=== PATIENT | female | born 1975 | race Caucasian/White ===

== ENCOUNTER 2017-11-28 19:31 | Emergency (ER) | payer BC ==
[2017-11-28] MEDS ORDERED: HYDROCODONE/APAP 7.5/325MG TABLET PO ONE (20:38)
[2017-11-28] MEDS ORDERED: ONDANSETRON 4 MG ODT TABLET SL ONE (20:38)
--- NOTE | 2017-11-28 20:44 | Emergency Department Record ---
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 Patient reports that she was able to walk following her fall injury, denies injury to the head. Patient reports mild pain to the left paraspinal region, neck, and left hip and more sever pain to the left hand/wrist. Patient does not take blood thinner medications, but does report a history of RA (takes immunosuppresant medication) . 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 Place Fall Occurred: Home Loss of Consciousness: None Prolonged Down Time?: No Symptoms Prior to Fall: None Location: Neck, Back Location - Extremities: Left: Hand, Thigh Severity: Moderate Severity scale (1-10): 9 Quality: Aching - [place] Coma Scale Eye Response: (4) Open spontaneously Motor Response: (6) Obeys commands Verbal Response: (5) Oriented Shaila Total: 15 - Related Data Home Medications Medication Instructions Recorded Confirmed Last Taken Meloxicam 15 mg PO DAILY 11/28/17 11/28/17 1 Day Ago ~11/27/17 Venlafaxine HCl [Effexor Xr] 300 mg PO DAILY 11/28/17 11/28/17 1 Day Ago ~11/27/17 Previous Rx's Medication Instructions Recorded Ibuprofen [Motrin] 800 mg PO Q6H PRN #30 tab 11/28/17 Allergies Allergy/AdvReac Type Severity Reaction Status Date / Time No Known Drug Allergies Allergy Verified 11/28/17 20:34 Travel Screening - Travel/Exposure Within Last 30 Days Have you traveled within the last 30 days?: No - Travel/Exposure Within Last Year Have you traveled outside the [place] in the last year?: No - Additonal Travel Details Have you been exposed to anyone with a communicable illness?: No - Travel Symptoms Symptom Screening: None Review of Systems Constitutional: Denies: Chills, Fever, Malaise, Night sweats Eyes: Denies: Eye discharge, Eye pain ENT: Denies: Congestion, Ear pain, Epistaxis Respiratory: Denies: Cough, Dyspnea Cardiovascular: Denies: Chest pain, Dyspnea on exertion Endocrine: Denies: Fatigue, Heat or cold intolerance Gastrointestinal: Denies: Abdominal pain, Nausea, Vomiting Genitourinary: Denies: Incontinence, Retention Musculoskeletal: Reports: Arthralgia, Back pain, Neck pain. Denies: Gout, Joint swelling Skin: Reports: Bruising (left hand). Denies: Change in color, Change in hair/ nails Neurological: Denies: Abnormal gait, Confusion, Headache, Seizure Psychiatric: Denies: Anxiety Hematological/Lymphatic: Denies: Anemia, Blood Clots Past Medical History - SOCIAL HISTORY Smoking Status: Never smoker Alcohol Use: Occasional Drug Use: None - RESPIRATORY Hx Respiratory Disorders: No - CARDIOVASCULAR Hx Cardio Disorders: Yes Hx Hypertension: Yes - NEURO Hx Neuro Disorders: Yes Hx Headaches: Yes - GI Hx GI Disorders: Yes Hx Diverticulitis: Yes - Hx Genitourinary Disorders: No - ENDOCRINE Hx Endocrine Disorders: No - MUSCULOSKELETAL Hx Musculoskeletal Disorders: No - PSYCH Hx Psych Problems: Yes Hx Anxiety: Yes - HEMATOLOGY/ONCOLOGY Hx Hematology/Oncology Disorders: No Family Medical History Any Significant Family History?: Yes Physical Exam - General General Appearance: Alert, Oriented x3, Cooperative, Moderate distress Limitations: No limitations - Head Head exam: Atraumatic, Normocephalic, Normal inspection Head exam detail: negative: Abrasion, Contusion, Singh's sign, General tenderness, Hematoma, Laceration - Eye Eye exam: Normal appearance. negative: Conjunctival injection, Periorbital swelling, Periorbital tenderness, Scleral icterus - ENT Ear exam: negative: Auricular hematoma, Auricular trauma Nasal Exam: negative: Active bleeding, Discharge, Dried blood, Foreign body Mouth exam: negative: Drooling, Laceration, Muffled voice, Tongue elevation - Neck Neck exam: Normal inspection. negative: Meningismus, Tenderness - Respiratory Respiratory exam: Normal lung sounds bilaterally. negative: Rales, Respiratory distress, Rhonchi, Stridor - Cardiovascular Cardiovascular Exam: Regular rate, Normal rhythm, Normal heart sounds Peripheral Pulses: 3+: Radial (L) - GI/Abdominal GI/Abdominal exam: Soft. negative: Rebound, Rigid, Tenderness - Rectal Rectal exam: Deferred - exam: Deferred - Extremities Extremities exam: Tenderness (TTP and ecchymosis over the thenar region of the left hand, TTP and mild STS to the left proximal thigh c/w hematoma.). negative : Calf tenderness, Pedal edema - Back Back exam: Reports: Paraspinal tenderness (left lumbar region). Denies: CVA tenderness (R), CVA tenderness (L) - Neurological Neurological exam: Alert, Normal gait, Oriented X3 - Psychiatric Psychiatric exam: Normal affect, Normal mood - Skin Skin exam: Normal color. 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 Patient was instructed to follow-up with her PCP in 3-5 days as directed as well. Disposition Disposition: Discharge Clinical Impression: Multiple contusions Fall Qualifiers: Encounter type: initial encounter Qualified Code(s): W19.XXXA - Unspecified fall, initial encounter Disposition: Home, Self-Care Condition: (2) Stable Instructions: Contusion in Adults (ED) Additional Instructions: Return to ED if your symptoms worsen or if you have any concerns. Motrin 800 mg as directed. Follow-up with your family doctor in 3-5 days as directed. Prescriptions: Ibuprofen [Motrin] 800 mg PO Q6H PRN #30 tab PRN Reason: Pain - Moderate (5-7) Forms: Patient Portal Access Time of Disposition: 22:24 Quality - Quality Measures Quality Measures: N/A - Blood Pressure Screening Does Patient Have Any of the Following: No Blood Pressure Classification: Hypertensive Reading Systolic Measurement: 194 Diastolic Measurement: 123 Screening for High Blood Pressure: < First Hypertensive BP, F/U Documented > [ G8950] First Hypertensive Follow-up Interventions: Referral to alternative/primary care provider.
== END 2017-11-28 22:40 | disposition home or self-care (01) ==
LOC: ER 19:31
DX: S70.12XA Contusion of left thigh, initial encounter (principal); S30.0XXA Contusion of lower back and pelvis, initial encounter; S60.212A Contusion of left wrist, initial encounter; S70.02XA Contusion of left hip, initial encounter; M06.9 Rheumatoid arthritis, unspecified; W01.198A Fall on same level from slipping, tripping and stumbling with subsequent striking against other object, initial encounter; Y93.H2 Activity, gardening and landscaping; Y92.007 Garden or yard of unspecified non-institutional (private) residence as the place of occurrence of the external cause; I10 Essential (primary) hypertension
CPT/HCPCS: 72100; 72125; 99283; 99284

== ENCOUNTER 2018-02-10 10:37 | Emergency (ER) | payer BC ==
[2018-02-10] MEDS ORDERED: ONDANSETRON HCL IV 4 MG/2 ML VIAL IVP ONE (11:28)
[2018-02-10] MEDS ORDERED: HYDROMORPHONE HCL 2 MG/ML VIAL IVP ONE ×2 (11:28→12:17)
[2018-02-10 11:46] LABS: BASO % 0.4 % (0-6); EOS % 2.7 % (0-6); HEMATOCRIT 40.6 % (35.0-47.0); HEMOGLOBIN 12.7 gm/dl (11.6-16.0); LYMPH % 11.1 % (16-45); MEAN CELL VOLUME 88.3 fl (81-97); MEAN CORPUSCULAR HEMOGLOBIN 27.6 pg (27-33); MEAN CORPUSCULAR HGB CONC 31.3 g/dl (32-36); MONO % 8.8 % (0-9); PLATELET COUNT 290 K/uL (130-400); RED CELL DISTRIBUTION WIDTH 13.2 % (11.5-14.5); WHITE BLOOD COUNT W/O DIFF 7.5 K/uL (4.2-12.2)
--- NOTE | 2018-02-10 11:53 | Emergency Department Record ---
History of Present Illness - General Chief Complaint: Fall Injury Stated Complaint: FALL CHEST /BACK/PAIN Time Seen by Provider: 02/10/18 11:01 Source: Patient Mode of Arrival: Ambulatory Limitations: No limitations - History of Present Illness Initial Comments: pt fell onto a metal chair last night. it hit her in the diaphragm epigastric area. it knocked the wind out of her. the pain has increased and it now hurts in her back Complaint: Fall Onset/Timin -: Hour(s) Fall From: Standing When Fall Occurred: Other Fall Witnessed: Yes, by family Place Fall Occurred: Home Loss of Consciousness: None Prolonged Down Time?: No Symptoms Prior to Fall: None Location: Chest, Abdomen Severity scale (1-10): 9 Quality: Stabbing Associated Symptoms: Denies - [place] Coma Scale Eye Response: (4) Open spontaneously Motor Response: (6) Obeys commands Verbal Response: (5) Oriented Shaila Total: 15 - Related Data Previous Rx's Medication Instructions Recorded Ibuprofen [Motrin] 800 mg PO Q6H PRN #30 tab 11/28/17 Hydrocodone/Acetaminophen [[place] 1 each PO Q6HR #10 tablet 02/10/18 5-325 Tablet] Allergies Allergy/AdvReac Type Severity Reaction Status Date / Time No Known Drug Allergies Allergy Verified 11/28/17 20:34 Travel Screening - Travel/Exposure Within Last 30 Days Have you traveled within the last 30 days?: No - Travel/Exposure Within Last Year Have you traveled outside the [place] in the last year?: No - Additonal Travel Details Have you been exposed to anyone with a communicable illness?: No - Travel Symptoms Symptom Screening: None Review of Systems Reviewed: No additional complaints except as noted below Constitutional: Reports: As per HPI. Denies: Chills, Fever, Malaise, Night sweats, Weakness, Weight change Eyes: Reports: As per HPI. Denies: Eye discharge, Eye pain, Photophobia, Vision change ENT: Reports: As per HPI. Denies: Congestion, Dental pain, Ear pain, Epistaxis , Hearing loss, Throat pain Respiratory: Reports: As per HPI. Denies: Cough, Dyspnea, Hemoptysis, Stridor, Wheezes Cardiovascular: Reports: As per HPI. Denies: Arrhythmia, Chest pain, Dyspnea on exertion, Edema, Murmurs, Orthopnea, Palpitations, Paroxysmal nocturnal dyspnea, Rheumatic Fever, Syncope Endocrine: Reports: As per HPI. Denies: Fatigue, Heat or cold intolerance, Polydipsia, Polyuria Gastrointestinal: Reports: As per HPI, Abdominal pain. Denies: Constipation, Diarrhea, Hematemesis, Hematochezia, Melena, Nausea, Vomiting Genitourinary: Reports: As per HPI. Denies: Abnormal menses, Discharge, Dyspareunia, Dysuria, Frequency, Hematuria, Incontinence, Retention, Urgency Musculoskeletal: Reports: As per HPI. Denies: Arthralgia, Back pain, Gout, Joint swelling, Myalgia, Neck pain Skin: Reports: As per HPI. Denies: Bruising, Change in color, Change in hair/ nails, Lesions, Pruritus, Rash Neurological: Reports: As per HPI. Denies: Abnormal gait, Confusion, Headache, Numbness, Paresthesias, Seizure, Tingling, Tremors, Vertigo, Weakness Psychiatric: Reports: As per HPI. Denies: Anxiety, Auditory hallucinations, Depression, Homicidal thoughts, Suicidal thoughts, Visual hallucinations Hematological/Lymphatic: Reports: As per HPI. Denies: Anemia, Blood Clots, Easy bleeding, Easy bruising, Swollen glands Past Medical History - SOCIAL HISTORY Smoking Status: Current every day smoker Alcohol Use: Rare Drug Use: None - RESPIRATORY Hx Respiratory Disorders: No - CARDIOVASCULAR Hx Cardio Disorders: Yes Hx Hypertension: Yes - NEURO Hx Neuro Disorders: Yes Hx Headaches: Yes - GI Hx GI Disorders: Yes Hx Diverticulitis: Yes - Hx Genitourinary Disorders: No - ENDOCRINE Hx Endocrine Disorders: No - MUSCULOSKELETAL Hx Musculoskeletal Disorders: No - PSYCH Hx Psych Problems: Yes Hx Anxiety: Yes - HEMATOLOGY/ONCOLOGY Hx Hematology/Oncology Disorders: No Family Medical History Any Significant Family History?: No Physical Exam - General General Appearance: Alert, Oriented x3, Cooperative, Moderate distress - Head Head exam: Normal inspection - Eye Eye exam: Normal appearance, PERRL, EOMI Pupils: Normal accommodation - ENT ENT exam: Normal exam, Mucous membranes moist, Normal external ear exam, Normal orophraynx Ear exam: Normal external inspection. negative: External canal tenderness Nasal Exam: Normal inspection. negative: Discharge, Sinus tenderness Mouth exam: Normal external inspection, Tongue normal Teeth exam: Normal inspection. negative: Dental caries Throat exam: Normal inspection. negative: Tonsillar erythema, Tonsillar exudate - Neck Neck exam: Normal inspection, Full ROM. negative: Tenderness - Respiratory Respiratory exam: Normal lung sounds bilaterally. negative: Respiratory distress - Cardiovascular Cardiovascular Exam: Regular rate, Normal rhythm, Normal heart sounds - GI/Abdominal GI/Abdominal exam: Soft, Normal bowel sounds, Tenderness - Rectal Rectal exam: Deferred - exam: Deferred - Extremities Extremities exam: Normal inspection, Full ROM, Normal capillary refill. negative: Tenderness - Back Back exam: Reports: Normal inspection, Full ROM. Denies: Muscle spasm, Rash noted, Tenderness - Neurological Neurological exam: Alert, Normal gait, Oriented X3, Reflexes normal - Psychiatric Psychiatric exam: Normal affect, Normal mood - Skin Skin exam: Dry, Intact, Normal color, Warm Course Vital Signs 02/10/18 10:52 Temperature 97.9 F Pulse Rate 89 Respiratory 18 Rate Blood Pressure 153/99 Pulse Ox 100 Medical Decision Making - Lab Data Result diagrams: 02/10/18 11:32 02/10/18 11:32 Disposition Disposition: Discharge Clinical Impression: Strain of muscle and tendon of back wall of thorax, initial encounter Contusion Qualifiers: Encounter type: initial encounter Contusion area: abdominal wall Qualified Code (s): S30.1XXA - Contusion of abdominal wall, initial encounter Disposition: Home, Self-Care Condition: (1) Good Instructions: Contusion in Adults (ED), Thoracic Back Strain (ED) Additional Instructions: follow up with family doctor. return sooner if worse. Prescriptions: Hydrocodone/Acetaminophen [[place] 5-325 Tablet] 1 each PO Q6HR #10 tablet Forms: Patient Portal Access Quality - Quality Measures Quality Measures: N/A - Blood Pressure Screening Does Patient Have Any of the Following: No Blood Pressure Classification: Hypertensive Reading Systolic Measurement: 153 Diastolic Measurement: 99 Screening for High Blood Pressure: < First Hypertensive BP, F/U Documented > [ G8950] First Hypertensive Follow-up Interventions: Follow-up with rescreen GT 1 day and LT 4 weeks.
[2018-02-10 11:55] LABS: BLOOD UREA NITROGEN 20 mg/dL (6-20)
[2018-02-10 11:56] LABS: CREATININE 0.7 mg/dL (0.5-0.9); EST GLOMERULAR FILTRATION RATE > 60 mL/min; TOTAL PROTEIN 7.4 g/dL (6.6-8.7)
[2018-02-10 11:58] LABS: GLUCOSE,RANDOM 105 mg/dL (74-109)
[2018-02-10 12:01] LABS: ALB/GLOB RATIO 1.6 (1.1-1.8); ALBUMIN 4.5 g/dL (4.0-5.0); ALKALINE PHOSPHATASE 115 U/L (35-104); ALT/SGPT 24 U/L (<33); AST/SGOT 25 U/L (10.0-35.0); CREATINE PHOSPHOKINASE 88 U/L (26-192); LIPASE 34 U/L (13-60)
--- NOTE | 2018-02-11 13:26 | CT SCAN REPORT ---
DATE: 02/10/2018. EXAM: CT OF THE THORAX. HISTORY: Pain. TECHNIQUE: CT of the thorax is performed following intravenous contrast administration. A total of 100 mL of Omnipaque 300 contrast used for this examination. COMPARISON: None. FINDINGS: There is a nodule in the right lobe of the thyroid measuring 9.0 mm in size. Nonspecific mediastinal lymph nodes are present. The largest lymph node is in the right pretracheal region measuring 1.2 x 1.2 cm in size. No aortic aneurysm or aortic dissection. No lung mass or lung nodule identified. There is no lung consolidation. No pneumothorax. No pleural or pericardial effusion. IMPRESSION: 1. NO ACUTE THORACIC PROCESS. 2. A 9.0 MM NODULE IN THE RIGHT LOBE OF THE THYROID. ULTRASOUND COULD BE PERFORMED FOR ITS FURTHER ASSESSMENT. JOB NUMBER: [id number] MTDD
--- NOTE | 2018-02-11 13:32 | CT SCAN REPORT ---
DATE: 02/10/2018. EXAM: CT OF THE ABDOMEN AND PELVIS. HISTORY: Upper abdominal pain. TECHNIQUE: CT of the abdomen and pelvis is performed following intravenous and oral contrast administration. A total of 100 mL of Omnipaque 300 contrast is used for this examination. COMPARISON: None. FINDINGS: The liver and spleen are unremarkable. No pancreatic mass or inflammatory change. The bile ducts are mildly dilated. This is likely a physiologic response to the cholecystectomy. No adrenal lesions seen. There is bilateral renal function with no renal mass or hydronephrosis. No aortic aneurysm. No periaortic mass or adenopathy. There are no dilated bowel loops. No pelvic mass, abscess, or adenopathy. No free air or free fluid. The uterus is surgically absent. IMPRESSION: 1. NO ACUTE ABDOMINAL OR PELVIC PROCESS IDENTIFIED. 2. PRIOR CHOLECYSTECTOMY AND HYSTERECTOMY. JOB NUMBER: [id number] [facility]
== END 2018-02-10 13:44 | disposition home or self-care (01) ==
LOC: ER 10:37
DX: S29.012A Strain of muscle and tendon of back wall of thorax, initial encounter (principal); S30.1XXA Contusion of abdominal wall, initial encounter; W07.XXXA Fall from chair, initial encounter; Y92.009 Unspecified place in unspecified non-institutional (private) residence as the place of occurrence of the external cause; I10 Essential (primary) hypertension; F17.210 Nicotine dependence, cigarettes, uncomplicated
CPT/HCPCS: 99284 ×2; 96376; 96374; 96375; 82550; 83690; 85025; 80053; 71260; 74177; Q9967; J2405; J1170

== ENCOUNTER 2018-07-25 15:41 | Emergency (ER) | payer BC, MEDICAID ==
[2018-07-25] MEDS ORDERED: TOPICAL LIDOCAINE W/ EPI 5 ML TOP ONE (16:07)
--- NOTE | 2018-07-25 16:25 | Emergency Department Record ---
History of Present Illness - General Chief complaint: Nosebleed/epistaxis Stated complaint: NOSE BLEED Time Seen by Provider: 07/25/18 16:06 Source: Patient Mode of Arrival: Ambulatory - History of Present Illness Initial comments: right nostril nose bleed and coughing out clots and I had her blow her nose and clots came out and placed TLE on cotton ball and placed it in the right nostril. Onset/Timin -: Hour(s) Location: Nose Severity: Moderate Consistency: Constant Improves with: Pressure Worsens with: None - Related Data Previous Rx's Medication Instructions Recorded Ibuprofen [Motrin] 800 mg PO Q6H PRN #30 tab 11/28/17 Cephalexin [Keflex] 500 mg PO TID #15 cap 07/25/18 Clonidine HCl 0.1 mg PO BID #20 tablet 07/25/18 Allergies Allergy/AdvReac Type Severity Reaction Status Date / Time No Known Drug Allergies Allergy Verified 07/25/18 16:04 Travel Screening - Travel/Exposure Within Last 30 Days Have you traveled within the last 30 days?: No - Travel/Exposure Within Last Year Have you traveled outside the [place] in the last year?: No - Additonal Travel Details Have you been exposed to anyone with a communicable illness?: No - Travel Symptoms Symptom Screening: None Review of Systems Reviewed: No additional complaints except as noted below Constitutional: Reports: As per HPI. Denies: Chills, Fever, Malaise, Night sweats, Weakness, Weight change Eyes: Reports: As per HPI. Denies: Eye discharge, Eye pain, Photophobia, Vision change ENT: Reports: As per HPI. Denies: Congestion, Dental pain, Ear pain, Epistaxis , Hearing loss, Throat pain Respiratory: Reports: As per HPI. Denies: Cough, Dyspnea, Hemoptysis, Stridor, Wheezes Cardiovascular: Reports: As per HPI. Denies: Arrhythmia, Chest pain, Dyspnea on exertion, Edema, Murmurs, Orthopnea, Palpitations, Paroxysmal nocturnal dyspnea, Rheumatic Fever, Syncope Endocrine: Reports: As per HPI. Denies: Fatigue, Heat or cold intolerance, Polydipsia, Polyuria Gastrointestinal: Reports: As per HPI. Denies: Abdominal pain, Constipation, Diarrhea, Hematemesis, Hematochezia, Melena, Nausea, Vomiting Genitourinary: Reports: As per HPI. Denies: Abnormal menses, Discharge, Dyspareunia, Dysuria, Frequency, Hematuria, Incontinence, Retention, Urgency Musculoskeletal: Reports: As per HPI. Denies: Arthralgia, Back pain, Gout, Joint swelling, Myalgia, Neck pain Skin: Reports: As per HPI. Denies: Bruising, Change in color, Change in hair/ nails, Lesions, Pruritus, Rash Neurological: Reports: As per HPI. Denies: Abnormal gait, Confusion, Headache, Numbness, Paresthesias, Seizure, Tingling, Tremors, Vertigo, Weakness Psychiatric: Reports: As per HPI. Denies: Anxiety, Auditory hallucinations, Depression, Homicidal thoughts, Suicidal thoughts, Visual hallucinations Hematological/Lymphatic: Reports: As per HPI. Denies: Anemia, Blood Clots, Easy bleeding, Easy bruising, Swollen glands Past Medical History - SOCIAL HISTORY Smoking Status: Current every day smoker Alcohol Use: Rare Drug Use: None - RESPIRATORY Hx Respiratory Disorders: No - CARDIOVASCULAR Hx Cardio Disorders: Yes Hx Hypertension: Yes - NEURO Hx Neuro Disorders: Yes Hx Headaches: Yes - GI Hx GI Disorders: Yes Hx Diverticulitis: Yes - Hx Genitourinary Disorders: No - ENDOCRINE Hx Endocrine Disorders: No - MUSCULOSKELETAL Hx Musculoskeletal Disorders: No - PSYCH Hx Psych Problems: Yes Hx Anxiety: Yes - HEMATOLOGY/ONCOLOGY Hx Hematology/Oncology Disorders: No Family Medical History Any Significant Family History?: No Physical Exam - General General Appearance: Alert, Oriented x3, Cooperative, Mild distress - Head Head exam: Normal inspection - Eye Eye exam: Normal appearance, PERRL Pupils: Normal accommodation - ENT ENT exam: Mucous membranes moist, Normal external ear exam, Normal orophraynx, TM's normal bilaterally Ear exam: Normal external inspection. negative: External canal tenderness Nasal Exam: Active bleeding. negative: Discharge, Sinus tenderness Mouth exam: Normal external inspection, Tongue normal Teeth exam: Normal inspection. negative: Dental caries Throat exam: Normal inspection. negative: Tonsillar erythema, Tonsillar exudate - Neck Neck exam: Normal inspection, Full ROM. negative: Tenderness - Respiratory Respiratory exam: Normal lung sounds bilaterally. negative: Respiratory distress - Cardiovascular Cardiovascular Exam: Regular rate, Normal rhythm, Normal heart sounds - GI/Abdominal GI/Abdominal exam: Soft, Normal bowel sounds. negative: Tenderness - Rectal Rectal exam: Deferred - exam: Deferred - Extremities Extremities exam: Normal inspection, Full ROM, Normal capillary refill. negative: Tenderness - Back Back exam: Reports: Normal inspection, Full ROM. Denies: Muscle spasm, Rash noted, Tenderness - Neurological Neurological exam: Alert, Normal gait, Oriented X3, Reflexes normal - Psychiatric Psychiatric exam: Normal affect, Normal mood - Skin Skin exam: Dry, Intact, Normal color, Warm Course Vital Signs 07/25/18 16:07 Temperature 98 F Pulse Rate 96 H Respiratory 20 Rate Blood Pressure 206/121 Pulse Ox 98 - Reevaluation(s) Reevaluation #1: placed a long Rhinorocket in the right nostril and that stopped her bleeding. 07/25/18 18:03 Reevaluation #2: bleeding has stopped 07/25/18 18:48 Medical Decision Making - Lab Data Result diagrams: 07/25/18 16:30 07/25/18 13:35 Disposition Clinical Impression: Epistaxis Disposition: Home, Self-Care Condition: (1) Good Instructions: Nosebleed (ED) Additional Instructions: return to ED or see family Dr in 2 days to remove her packing keflex three times a day to prevent sinusitis Prescriptions: Cephalexin [Keflex] 500 mg PO TID #15 cap Clonidine HCl 0.1 mg PO BID #20 tablet Forms: Patient Portal Access Time of Disposition: 18:47 Quality - Quality Measures Quality Measures: N/A - Blood Pressure Screening Does Patient Have Any of the Following: No Blood Pressure Classification: Hypertensive Reading Systolic Measurement: 206 Diastolic Measurement: 121 Screening for High Blood Pressure: < First Hypertensive BP, F/U Documented > [ G8950] First Hypertensive Follow-up Interventions: Referral to alternative/primary care provider.
[2018-07-25 16:40] LABS: BASO % 0.3 % (0-6); EOS % 3.3 % (0-6); GRAN % 55.5 % (47-80); HEMATOCRIT 42.4 % (35.0-47.0); HEMOGLOBIN 13.8 gm/dl (11.6-16.0); LYMPH % 33.2 % (16-45); MEAN CORPUSCULAR HEMOGLOBIN 27.7 pg (27-33); MEAN CORPUSCULAR HGB CONC 32.5 g/dl (32-36); MONO % 7.7 % (0-9); PLATELET COUNT 295 K/uL (130-400); RED BLOOD COUNT 4.99 M/uL (3.80-5.40); RED CELL DISTRIBUTION WIDTH 13.6 % (11.5-14.5); WHITE BLOOD COUNT W/O DIFF 7.7 K/uL (4.2-12.2)
[2018-07-25 16:48] LABS: BLOOD UREA NITROGEN 15 mg/dL (6-20); CREATININE 0.7 mg/dL (0.5-0.9); EST GLOMERULAR FILTRATION RATE > 60 mL/min
[2018-07-25 16:51] LABS: GLUCOSE,RANDOM 90 mg/dL (74-109)
[2018-07-25 16:53] LABS: PARTIAL THROMBOPLASTIN TIME 26.9 SECONDS (24.5-39.1); PROTHROMBIN TIME (PATIENT) 10.1 SECONDS (9.5-12.1)
[2018-07-25] MEDS ORDERED: CLONIDINE HCL 0.1 MG TABLET PO ONE ×2 (18:11→18:50)
[2018-07-25] MEDS ORDERED: CEPHALEXIN 500 MG CAPSULE PO STA (18:53)
== END 2018-07-25 19:04 | disposition home or self-care (01) ==
LOC: ER 15:41
DX: R04.0 Epistaxis (principal); R05 Cough; I10 Essential (primary) hypertension; F17.210 Nicotine dependence, cigarettes, uncomplicated
CPT/HCPCS: 30901; 80048; 85025; 85610; 85730; 99283; 99284

== ENCOUNTER 2018-07-27 11:35 | Emergency (ER) | payer BC, MEDICAID ==
[2018-07-27] MEDS ORDERED: TRANEXAMIC ACID 1,000 MG/10 ML ML TOP ONE (11:43)
--- NOTE | 2018-07-27 11:44 | Emergency Department Record ---
History of Present Illness - General Chief Complaint: Recheck - Other Stated Complaint: REMOVE NASAL PACKING Time Seen by Provider: 07/27/18 11:36 Source: Patient Mode of arrival: Ambulatory Limitations: No limitations - History of Present Illness Initial Comments: 42 yo female presents for re-evaluation of her nose with a nasal packing in place. No bleeding or complaints. She is not on any anticoagulants. No specific bleeding disorders or nasal disease. MD Complaint: Wound re-check, Other (Nasal Packing) -: Days(s) (2) Returns Today for: Wound recheck Symptoms Since Prior Visit: No new symptoms Associated Symptoms: None - Related Data Previous Rx's Medication Instructions Recorded Ibuprofen [Motrin] 800 mg PO Q6H PRN #30 tab 11/28/17 Cephalexin [Keflex] 500 mg PO TID #15 cap 07/25/18 Clonidine HCl 0.1 mg PO BID #20 tablet 07/25/18 Allergies Allergy/AdvReac Type Severity Reaction Status Date / Time No Known Drug Allergies Allergy Verified 07/25/18 16:04 Review of Systems Constitutional: Denies: Chills, Fever Eyes: Denies: Eye discharge, Eye pain, Photophobia, Vision change ENT: Reports: Congestion Respiratory: Denies: Cough Cardiovascular: Denies: Chest pain, Syncope Endocrine: Denies: Fatigue Gastrointestinal: Denies: Abdominal pain, Diarrhea, Nausea, Vomiting Genitourinary: Denies: Dysuria Musculoskeletal: Denies: Arthralgia, Myalgia Skin: Denies: Bruising, Change in color, Rash Neurological: Denies: Headache Psychiatric: Denies: Anxiety Hematological/Lymphatic: Denies: Easy bleeding, Easy bruising Past Medical History - SOCIAL HISTORY Smoking Status: Current every day smoker Drug Use: None - RESPIRATORY Hx Respiratory Disorders: No - CARDIOVASCULAR Hx Cardio Disorders: Yes Hx Hypertension: Yes - NEURO Hx Neuro Disorders: Yes Hx Headaches: Yes - GI Hx GI Disorders: Yes Hx Diverticulitis: Yes - Hx Genitourinary Disorders: No - ENDOCRINE Hx Endocrine Disorders: No - MUSCULOSKELETAL Hx Musculoskeletal Disorders: No - PSYCH Hx Psych Problems: Yes Hx Anxiety: Yes - HEMATOLOGY/ONCOLOGY Hx Hematology/Oncology Disorders: No Physical Exam - General General Appearance: Alert, Oriented x3, Cooperative, No acute distress Limitations: No limitations - Head Head exam: Atraumatic, Normal inspection - Eye Eye exam: Normal appearance. negative: Conjunctival injection - ENT ENT exam: Normal exam, Mucous membranes moist Ear exam: Normal external inspection Nasal Exam: Active bleeding, Dried blood. negative: Normal inspection Mouth exam: Normal external inspection Teeth exam: Normal inspection Throat exam: Normal inspection - Neurological Neurological exam: Alert, Oriented X3 - Psychiatric Psychiatric exam: Normal affect, Normal mood - Skin Skin exam: Dry, Intact, Normal color, Warm Course - Reevaluation(s) Reevaluation #1: The nasal packing was gently removed. The nose began to ooze immediately in the right nostril The blood and clots were cleared Cotton packing soaked with TXA was placed. No immediate bleeding. 07/27/18 11:49 07/27/18 12:25 The cotton soaked TXA was replaced with cotton soaked TLE Some clot noted deep in the right nostril but no active bleeding or posterior pharynx bleeding 07/27/18 12:45 The TLE was removed without bleeding. The site appears deep in the right. No reachable for silver nitrite. A rihno-rocket soaked in TXA was placed without bleeding. We will try to establish follow up with ENT 07/27/18 13:00 No recurrence of bleeding after rhino-rocket placement 07/27/18 13:05 Appointment was made for 7:40am with [facility] on Monday. Disposition Disposition: Discharge Clinical Impression: Epistaxis Disposition: Home, Self-Care Condition: (1) Good Instructions: Nosebleed (ED) Additional Instructions: Return to the ED if you have pain, bleeding, fever or any concerns Follow up with the ENT when scheduled Forms: Patient Portal Access Time of Disposition: 12:47 Quality - Quality Measures Quality Measures: N/A - Blood Pressure Screening Does Patient Have Any of the Following: Active Dx of HTN Blood Pressure Classification: Hypertensive Reading Systolic Measurement: 176 Diastolic Measurement: 120 Screening for High Blood Pressure: Patient Exclusion, Hx of HTN [G9744]
[2018-07-27] MEDS ORDERED: TOPICAL LIDOCAINE W/ EPI 5 ML TOP ONE (12:05)
== END 2018-07-27 13:10 | disposition home or self-care (01) ==
LOC: ER 11:35
DX: R04.0 Epistaxis (principal); I10 Essential (primary) hypertension; F17.210 Nicotine dependence, cigarettes, uncomplicated
CPT/HCPCS: 30901 ×2; 99283 ×2; J3490

== ENCOUNTER 2018-09-11 18:50 | Emergency (ER) | payer BC, MEDICAID ==
[2018-09-11] MEDS ORDERED: 0.9 % SODIUM CHLORIDE 1,000 ML BAG IV ONE (19:05)
--- NOTE | 2018-09-11 19:05 | Emergency Department Record ---
History of Present Illness - General Chief Complaint: Abdominal Pain Stated Complaint: BCK PAIN,FEVER Time Seen by Provider: 09/11/18 19:04 Source: Patient Mode of Arrival: Ambulatory Limitations: No limitations - History of Present Illness Initial Comments: 43 yo female presents not feeling well since Monday. She developed some nausea then gradual onset of left sided pain. She has had intermittent fevers as well. She has nausea but no vomiting. No diarrhea. She feels bloated. She reports a prior history of diverticulitis three times. Last episode was about three years ago. She still has her appendix. She has had a hysterectomy and cholecystectomy. No rash. MD Complaint: Abdominal pain, Flank pain, Other Location: L Flank, LLQ Radiation: L flank, LLQ Migration to: L Flank, LLQ Quality: Aching Consistency: Constant Improves With: Rest Worsens With: Movement Associated Symptoms: Anorexia, Dysuria, Fever, Nausea - Related Data Home Medications Medication Instructions Recorded Confirmed Last Taken Lisinopril [Zestril] 40 mg PO DAILY 09/11/18 09/11/18 Unknown Previous Rx's Medication Instructions Recorded Ibuprofen [Motrin] 800 mg PO Q6H PRN #30 tab 11/28/17 Clonidine HCl 0.1 mg PO BID #20 tablet 07/25/18 Cephalexin [Keflex] 500 mg PO QID #40 cap 09/11/18 Hydrocodone/APAP 5/325Mg [[place] 1 each PO Q6H #10 tab 09/11/18 5Mg/325Mg] Ondansetron [Zofran Odt] 4 mg PO Q8H #15 tab.rapdis 09/11/18 Allergies Allergy/AdvReac Type Severity Reaction Status Date / Time No Known Drug Allergies Allergy Verified 07/25/18 16:04 Review of Systems Constitutional: Reports: Chills, Fever Eyes: Denies: Eye discharge ENT: Denies: Congestion, Throat pain Respiratory: Denies: Cough, Dyspnea, Hemoptysis, Stridor, Wheezes Cardiovascular: Denies: Chest pain, Palpitations, Syncope Endocrine: Denies: Fatigue Gastrointestinal: Reports: As per HPI, Abdominal pain, Nausea. Denies: Diarrhea , Vomiting Genitourinary: Reports: Dysuria. Denies: Hematuria, Incontinence, Retention, Urgency Musculoskeletal: Reports: As per HPI, Back pain. Denies: Arthralgia, Neck pain Skin: Denies: Bruising, Change in color, Rash Neurological: Denies: Headache Psychiatric: Denies: Anxiety Hematological/Lymphatic: Denies: Blood Clots, Easy bleeding, Easy bruising, Swollen glands Past Medical History - SOCIAL HISTORY Smoking Status: Current every day smoker Drug Use: None - RESPIRATORY Hx Respiratory Disorders: No - CARDIOVASCULAR Hx Cardio Disorders: Yes Hx Hypertension: Yes - NEURO Hx Neuro Disorders: Yes Hx Headaches: Yes - GI Hx GI Disorders: Yes Hx Diverticulitis: Yes - Hx Genitourinary Disorders: No - ENDOCRINE Hx Endocrine Disorders: No - MUSCULOSKELETAL Hx Musculoskeletal Disorders: No - PSYCH Hx Psych Problems: Yes Hx Anxiety: Yes - HEMATOLOGY/ONCOLOGY Hx Hematology/Oncology Disorders: No Physical Exam - General General Appearance: Alert, Oriented x3, Cooperative, No acute distress Limitations: No limitations - Head Head exam: Atraumatic, Normocephalic, Normal inspection - Eye Eye exam: Normal appearance, PERRL. negative: Conjunctival injection, Scleral icterus - ENT ENT exam: Normal exam, Mucous membranes moist Ear exam: Normal external inspection Nasal Exam: Normal inspection Mouth exam: Normal external inspection Teeth exam: Normal inspection - Neck Neck exam: Normal inspection - Respiratory Respiratory exam: Normal lung sounds bilaterally. negative: Respiratory distress - Cardiovascular Cardiovascular Exam: Tachycardia Peripheral Pulses: 2+: Radial (R), Radial (L) - GI/Abdominal GI/Abdominal exam: Soft, Tenderness (tender left lower and left flank otherwise the abdomen is very soft on examination). negative: Distended, Guarding - Rectal Rectal exam: Deferred - exam: Deferred - Extremities Extremities exam: Normal inspection, Full ROM, Normal capillary refill. negative: Tenderness - Back Back exam: Reports: CVA tenderness (L), Tenderness - Neurological Neurological exam: Alert, Oriented X3 - Psychiatric Psychiatric exam: Normal affect, Normal mood - Skin Skin exam: Dry, Intact, Normal color, Warm Course Vital Signs 09/11/18 19:03 Temperature 98.3 F Pulse Rate [ 120 H Pulse Ox Probe] Respiratory 20 Rate Blood Pressure 208/121 [Left Arm] Pulse Ox 98 - Reevaluation(s) Reevaluation #1: No fever in the ED. Her TMax at home was 101. The CBC is normal. No acute changes. 09/11/18 19:22 The UA is consistent with possible urinary tract infection Rocephin ordered 09/11/18 19:49 No changes on the CMP 09/11/18 19:50 09/11/18 20:[address] scan was reviewed. Left periureteral stranding. Possible passed stone vs ascending infection. Normal kidney. Diverticulosis without diverticulitis. No other acute findings. 09/11/18 20:29 Clinically she is consistent with pyelonephritis that is uncomplicated. Pain and nausea are controlled. Normal labs. No complications on the CT. DC for outpatient treatment with culture pending. 09/11/18 20:34 Vitals all improved at DC We discussed home care and reasons to return for an immediate reevaluation Medical Decision Making - Lab Data Result diagrams: 09/11/18 19:10 09/11/18 19:10 Disposition Disposition: Discharge Clinical Impression: Pyelonephritis Disposition: Home, Self-Care Condition: (1) Good Instructions: Kidney Infection (ED) Additional Instructions: Take the prescriptions as directed. Return if worse, uncontrolled fever, vomiting, or pain Call your doctor for close follow up in the next 3-5 days You have a culture pending of the urine infection that will be available in about 3 days Prescriptions: Cephalexin [Keflex] 500 mg PO QID #40 cap Hydrocodone/APAP 5/325Mg [[place] 5Mg/325Mg] 1 each PO Q6H #10 tab Ondansetron [Zofran Odt] 4 mg PO Q8H #15 tab.rapdis Forms: Patient Portal Access Time of Disposition: 20:33 Quality - Quality Measures Quality Measures: N/A - Blood Pressure Screening Does Patient Have Any of the Following: Active Dx of HTN Blood Pressure Classification: Hypertensive Reading Systolic Measurement: 153 Diastolic Measurement: 79 Screening for High Blood Pressure: Patient Exclusion, Hx of HTN [G9744]
[2018-09-11] MEDS ORDERED: ONDANSETRON HCL IV 4 MG/2 ML VIAL IVP ONE (19:15)
[2018-09-11] MEDS ORDERED: KETOROLAC 30 MG/ML VIAL IVP ONE (19:15)
[2018-09-11 19:18] LABS: BASO % 0.4 % (0-6); EOS % 1.5 % (0-6); GRAN % 66.2 % (47-80); HEMATOCRIT 41.2 % (35.0-47.0); HEMOGLOBIN 13.4 gm/dl (11.6-16.0); LYMPH % 22.8 % (16-45); MEAN CELL VOLUME 86.9 fl (81-97); MEAN CORPUSCULAR HEMOGLOBIN 28.3 pg (27-33); MEAN CORPUSCULAR HGB CONC 32.5 g/dl (32-36); MONO % 9.1 % (0-9); PLATELET COUNT 307 K/uL (130-400); RED BLOOD COUNT 4.74 M/uL (3.80-5.40); RED CELL DISTRIBUTION WIDTH 13.6 % (11.5-14.5); WHITE BLOOD COUNT W/O DIFF 9.2 K/uL (4.2-12.2)
[2018-09-11 19:19] LABS: URINE BILIRUBIN NEGATIVE (NEGATIVE); URINE BLOOD MODERATE (NEGATIVE); URINE COLOR YELLOW; URINE GLUCOSE (UA) NEGATIVE (NEGATIVE); URINE KETONE NEGATIVE (NEGATIVE); URINE LEUKOCYTE ESTERASE MODERATE (NEGATIVE); URINE NITRITE NEGATIVE (NEGATIVE); URINE UROBILINOGEN 0.2 E.U./dL (0.20 - 1.00)
[2018-09-11 19:20] LABS: URINE APPEARANCE SL CLOUDY
[2018-09-11 19:24] LABS: URINE WBC 36 - 50 (0-2/hpf)
[2018-09-11 19:25] LABS: URINE BACTERIA 2+
[2018-09-11 19:28] LABS: BLOOD UREA NITROGEN 20 mg/dL (6-20)
[2018-09-11 19:29] LABS: CREATININE 0.8 mg/dL (0.5-0.9); EST GLOMERULAR FILTRATION RATE > 60 mL/min; TOTAL PROTEIN 7.5 g/dL (6.6-8.7)
[2018-09-11 19:31] LABS: GLUCOSE,RANDOM 95 mg/dL (74-109)
[2018-09-11 19:34] LABS: ALB/GLOB RATIO 1.3 (1.1-1.8); ALBUMIN 4.3 g/dL (4.0-5.0); ALKALINE PHOSPHATASE 129 U/L (35-104); ALT/SGPT 22 U/L (<33); AST/SGOT 17 U/L (10.0-35.0)
[2018-09-11] MEDS ORDERED: MORPHINE SULFATE 10 MG/ML VIAL IVP ONE ×2 (19:34→20:10)
[2018-09-11] MEDS ORDERED: CEFTRIAXONE 1GM/50ML BAG 1 GM/50 ML BAG IVPB ONE (19:35)
[2018-09-11] MEDS ORDERED: HYDROCODONE/APAP 5/325MG TABLET PO ONE (20:28)
[2018-09-11] MEDS ORDERED: ONDANSETRON 4 MG ODT TABLET SL ONE (20:28)
[2018-09-11] MEDS ORDERED: CEPHALEXIN 500 MG CAPSULE PO STA (20:28)
--- NOTE | 2018-09-13 12:20 | CT SCAN REPORT ---
EXAM: CT SCAN OF THE ABDOMEN AND PELVIS WITHOUT CONTRAST HISTORY: LEFT FLANK PAIN AND LEFT LOWER QUADRANT ABDOMINAL PAIN/GROIN PAIN. NAUSEA. PAIN WITH URINATION. TECHNIQUE: Standard CT imaging of the abdomen and pelvis was performed without contrast. Comparison: 02/10/18. FINDINGS: The lung bases are clear. The liver is normal. The gallbladder is surgically absent. The biliary tree, pancreas, spleen, and adrenal glands are normal. The renal parenchyma is normal. There is no abnormal perinephric fat stranding. There is mild periureteral fat stranding with no obstructing calculus or hydronephrosis. The appearance suggests ascending urinary tract infection. Correlate with urinalysis findings. The right ureter appears normal. The aorta is normal in caliber. There is no retroperitoneal lymphadenopathy. There are a few scattered diverticula within the sigmoid colon with no evidence for acute diverticulitis. The bowel and mesentery are otherwise normal. There is no pneumoperitoneum or ascites. Calcific like densities are noted inferior to the urinary bladder. These may be related to previous bladder suspension surgery. The bladder is incompletely distended. No focal abnormalities are identified. There is equivocal wall thickening of the urinary bladder with minor adjacent perivesical fat stranding. Degenerative changes are present within the lumbosacral spine. There are no acute osseous abnormalities. IMPRESSION: 1. MILD LEFT PERIURETERAL FAT STRANDING WITH NO EVIDENCE FOR OBSTRUCTING CALCULUS. THE APPEARANCE IS SUSPICIOUS FOR AN ASCENDING URINARY TRACT INFECTION. CORRELATE WITH URINALYSIS FINDINGS. 2. MILD SIGMOID DIVERTICULOSIS WITH NO EVIDENCE FOR ACUTE DIVERTICULITIS. 3. POST SURGICAL CHANGES ABOVE. JOB NUMBER: [id number] [facility]
== END 2018-09-11 21:02 | disposition home or self-care (01) ==
LOC: ER 18:50
DX: N10 Acute pyelonephritis (principal); K57.92 Diverticulitis of intestine, part unspecified, without perforation or abscess without bleeding; R30.0 Dysuria; R11.0 Nausea; I10 Essential (primary) hypertension; F17.210 Nicotine dependence, cigarettes, uncomplicated
CPT/HCPCS: 99284 ×2; 96376; 96365; 96375; 85025; 80053; 81001; 74176; J1885; J2405; J0696; J2270; J7030